=== PATIENT | female | born 1995 | race Caucasian/White ===

== ENCOUNTER 2023-10-15 12:39 | Outpatient (CLI) | payer MEDICAID, SELFPAY ==
--- NOTE | ~2023-10-15 | US_ITS ---
US breast LT limited 10/15/2023 13:04 Indication: Palpable breast lump Procedure: High-resolution Limited ultrasound of the left breast Comparison: No prior studies for comparison. Findings: At 11:00, 5 cm from the nipple there is an irregular shaped antiparallel hypoechoic mass me asuring 2.7 x 2.4 x 2.2 cm with internal vascularity and posterior acoustic enhancement. Impression: 1: Irregular shaped hypoechoic antiparallel vascular mass of the left breast at 11:00, 5 cm from the nipple measuring 2.7 cm. Recommend correlation with diagnostic bilateral mammogram for complete evalu ation. BI-RADS CATEGORY 0 - INCOMPLETE STUDY, NEED ADDITIONAL IMAGING EVALUATION. Reviewed, dictated and finalized at location A. ERSITY PROFESSOR Impression: 1: Irregular shaped hypoechoic antiparallel vascular mass of the left breast at 11:00, 5 cm from the nipple measuring 2.7 cm. Recommend correlation with diagn ostic bilateral mammogram for complete evaluation. BI-RADS CATEGORY 0 - INCOMPLETE STUDY, NEED ADDITIONAL IMAGING EVALUATION.
== END 2023-10-15 12:40 | disposition home or self-care (01) ==
LOC: ANHIMG 12:40
PROVIDERS: Visit Provider Obstetrics & Gynecology
DX: N63.22 Unspecified lump in the left breast, upper inner quadrant (principal); R92.2 Inconclusive mammogram
CPT/HCPCS: 76642

== ENCOUNTER 2023-11-06 09:09 | Outpatient (CLI) | payer MEDICAID, SELFPAY ==
--- NOTE | ~2023-11-06 | US_ITS ---
EXAMINATION: US GUIDED NEEDLE BIOPSY WITH VACUUM ASSISTANCE DATE: 11/06/2023 10:55 CDT INDICATION: Left breast mass seen on prior examination. Ultrasound-guided core biopsy is requested t o evaluate for malignancy. TECHNIQUE AND FINDINGS: The risks and potential benefits of the procedure were discussed with the patient, and written inform ed consent was obtained. After sterile preparation of the left breast, 1% lidocaine was utilized for local anesthesia. 1% lidocaine with epinephrine was used for deep anesthesia. A 10G vacuum-assisted biopsy gun needle was advanced through to the outer edge of the region of inter est from a superior approach utilizing sonographic guidance. A total of 4 tissue core samples were o btained through the lesion. An Inrad tissue marker clip was then placed at the biopsy site. Hemostas is was achieved. The patient tolerated procedure well and there was no evidence of immediate complication. The patien t was given verbal instructions partly is from the department. Tissue marker placement was confirmed by ultrasound. The tissue samples were submitted to surgical pathology for histologic analysis. IMPRESSION: 1. Successful ultrasound-guided vacuum-assisted biopsy of left breast mass with tissue marker placem ent. Please refer to pathology report for histologic analysis. Reviewed, dictated and finalized at location A. IMPRESSION: 1. Successful ultrasound-guided vacuum-assisted biopsy of left breast mass wit h tissue marker placement. Please refer to pathology report for histologic anal ysis.
== END 2023-11-06 09:10 | disposition home or self-care (01) ==
LOC: ANHIMG 09:11
PROVIDERS: Visit Provider Surgery
DX: N60.22 Fibroadenosis of left breast (principal)
CPT/HCPCS: 19083; 88305

== ENCOUNTER 2024-04-12 15:50 | Inpatient (IN) | payer OTHER, SELFPAY ==
[2024-04-12] VITALS (10 sets, daily range): BP systolic 94–130; BP diastolic 53–83; PULSE 76–95; TEMP 36.2; BMI 28.7
--- NOTE | 2024-04-12 15:50 | LDADM ---
This patient, Mulu Higuera, was admitted to Labor/Delivery/Recovery 108 on 04/12/24 at 15:50. Plans for labor, pain management and were discussed with patient. Patient/family oriented to hospital policies and general routines including ID bracelet, bed and alarms, visiting hours, pain management, procedures, bathroom and other care routines, personal items, smoking policy, room service/diet and guest tray routines, infant security routines, and visiting hours. Patient/Family are encouraged to report perceived risks to care and to ask questions if they do not understand what they are told or what they should do. See OBIX for further documentation.
[2024-04-12 16:37] LABS: Basophils Absolute Auto 0.1 K/mm3 (0.0-0.1); Basophils Percent Auto 0.4 % (0.2-1.2); Eosinophils Absolute Auto 0.1 K/mm3 (0-0.3); Eosinophils Percent Auto 0.5 % (0-4.4); Hematocrit 35.9 % (37.0-47.0); Hemoglobin 11.8 g/dL (12.0-15.0); Immature Granulocyte Absolute 0.18 K/mm3 (0.00-0.031); Immature Granulocyte Percent A 1.3 % (0-0.5); Immature Platelet Fraction Pct 13.8 % (0.9-11.2); Lymphocytes Absolute Auto 1.96 K/mm3 (0.9-3.2); Lymphocytes Percent Auto 13.8 % (18.3-44.2); Mean Corpuscular HGB Conc 32.9 g/dl (32-36); Mean Corpuscular Hemoglobin 31.3 pg (26-34); Mean Corpuscular Volume 95.2 fl (80-100); Mean Platelet Volume 13.2 fl (7.4-10.4); Monocytes Absolute Auto 1.2 K/mm3 (0.1-0.6); Monocytes Percent Auto 8.1 % (2.6-8.5); Neutrophils Absolute Auto 10.8 K/mm3 (1.3-6.7); Neutrophils Percent Auto 75.9 % (45.5-73.1); Platelet Count Result 190 k/mm3 (150-375); Red Blood Count 3.77 M/mm3 (4.2-5.4); Red Cell Distribution Width 13.3 % (11.5-14.5); White Blood Count 14.2 K/mm3 (4.5-10.0)
[2024-04-12] MEDS: DINOPROSTONE 10 MG VAG INSERT VAGINAL (16:45)
[2024-04-12] MEDS: AMPICILLIN 2 GM/NS 100 ML 2 GM/100 ML BAG IVPB (16:50)
[2024-04-12] MEDS: LACTATED RINGERS 1,000 ML 125 ML IV CONT (16:50)
[2024-04-12 17:03] LABS: Rapid Plasma Reagin Non-Reactive (NonReactive)
[2024-04-12 17:27] LABS: HIV 1/2 Ab P24 Ag Result Negative (Negative)
--- NOTE | 2024-04-12 18:29 | WPDANESEPP ---
Anes - Eval Pre Procedure Procedure: Labor Epidural Date/Time: 04/12/24 18:29 Surgeon: April Preop Diagnosis: Labor Pain Pre Op Diagnosis: Induction of Labor Patient Data Age: 28 Gender: F Height: 1.83 m Weight: 96 kg Last Vital Signs Pulse 83 04/12/24 18:15 BP 101/57 L 04/12/24 18:15 O2 Del Method Room Air 04/12/24 18:16 Allergies Allergy/AdvReac Type Severity Reaction Status Date / Time No Known Allergies Allergy Verified 03/16/24 14:05 Home Medications Medication Instructions Recorded Confirmed Type No Home Medications 10/29/23 03/16/24 History Laboratory Tests 04/12/24 16:03 WBC 14.2 H K/mm3 (4.5-10.0) RBC 3.77 L M/mm3 (4.2-5.4) Hgb 11.8 L g/dL (12.0-15.0) Hct 35.9 L % (37.0-47.0) MCV 95.2 fl (80-100) MCH 31.3 pg (26-34) MCHC 32.9 g/dl (32-36) RDW 13.3 % (11.5-14.5) Plt Count 190 k/mm3 (150-375) MPV 13.2 H fl (7.4-10.4) Immature Gran % (Auto) 1.3 H % (0-0.5) Neut % (Auto) 75.9 H % (45.5-73.1) Lymph % (Auto) 13.8 L % (18.3-44.2) [place] % (Auto) 8.1 % (2.6-8.5) Eos % (Auto) 0.5 % (0-4.4) Baso % (Auto) 0.4 % (0.2-1.2) Lymph # (Auto) 1.96 K/mm3 (0.9-3.2) [place] # (Auto) 1.2 H K/mm3 (0.1-0.6) Eos # (Auto) 0.1 K/mm3 (0-0.3) Baso # (Auto) 0.1 K/mm3 (0.0-0.1) Abs Immat Gran (auto) 0.18 H K/mm3 (0.00-0.031) Absolute Neuts (auto) 10.8 H K/mm3 (1.3-6.7) Absolute Nucleated RBC 0.000 K/mm3 (0.0-0.012) Nucleated RBC % 0.0 % (0.0-0.2) % Immature Plt Fraction 13.8 H % (0.9-11.2) RPR Non-reactive (NonReactive) HIV 1&2 Ab/P24 Ag 4thGn Negative (Negative) Blood Type A Positive Antibody Screen Negative : gestational age (. YOLANDA 04/15/24) Patient hx anesthesia problems: none Family hx anesthesia problems: none Results Review: All pre-operative results and documents have been reviewed as part of the pre-operative evaluation. [facility] Family History Family History Mother Asthma Sibling Asthma Diabetes mellitus Grandparent Diabetes mellitus Social History Social History Smoking status: Never smoker Alcohol intake: never Substance use: never Substance use type: does not use Do You Feel Safe in your Home?: Yes Lack of Transportation: No Lack of Food: Never True Current Housing: I Have Housing Concerned About Future Housing: No Difficulty Paying Gas/Electric Bills: No Difficulty Paying for Meds: No Currently Unemployed: No Education: High School Diploma/GED Difficulty w/ Childcare or Family Care: No Spiritual care concerns: No Exam Day of Procedure 04/12/24 18:29 Patient weight: normal Heart: regular rate and rhythm Lungs: normal air movement Airway: Mallampati scale class II Neurological: alert and oriented
[2024-04-12] MEDS: AMPICILLIN 1 GM/NS 50 ML 1 GM/50 ML BAG IVPB (20:46)
[2024-04-13] VITALS (259 sets, daily range): BP systolic 92–138; BP diastolic 42–100; PULSE 46–137; RESP 18; TEMP 35.6–37.7; O2SAT 88–100
[2024-04-13] MEDS: AMPICILLIN 1 GM/NS 50 ML 1 GM/50 ML BAG IVPB ×4 (00:58→13:20)
[2024-04-13] MEDS: OXYTOCIN 30 UNITS/NS 500 ML 30 UNITS/500 ML BAG 6 UNITS IV CONT (05:28)
[2024-04-13] MEDS: fentaNYL CITRATE INJ (*CRX) 100 MCG/2 ML VIAL 50 MCG IV PUSH ×2 (06:12→09:36)
[2024-04-13] MEDS: LACTATED RINGERS 1,000 ML 125 ML IV CONT ×3 (07:02→13:21)
[2024-04-13] MEDS: ONDANSETRON INJ 4 MG/2 ML VIAL IV PUSH (11:26)
--- NOTE | 2024-04-13 12:14 | PM.IMHP ---
H&P: HPI History of Present Illness Date/Time: 04/13/24 12:14 Chief Complaint: Here for induction of labor. Narrative: 28 y/o G1 at 39 5/7 weeks here for induction of labor. Cervidil overnight, has been withdrawn. Feeling painful contractions, feels much better now with epidural. GBS pos. Chlamydia cervicitis in , treated, with a negative test of cure. Review of Systems Review of Systems: All systems reviewed & are unremarkable except as noted in HPI and below PMFSH Surgical History Surgical History History of breast biopsy Family History Family History Mother Asthma Sibling Asthma Diabetes mellitus Grandparent Diabetes mellitus Social History Social History Smoking status: Never smoker Alcohol intake: never Substance use: never Substance use type: does not use Do You Feel Safe in your Home?: Yes Lack of Transportation: No Lack of Food: Never True Current Housing: I Have Housing Concerned About Future Housing: No Difficulty Paying Gas/Electric Bills: No Difficulty Paying for Meds: No Currently Unemployed: No Education: High School Diploma/GED Difficulty w/ Childcare or Family Care: No Spiritual care concerns: No Meds Home Medications and Allergies Home Medications Medication Instructions Recorded Confirmed Type No Home Medications 10/29/23 03/16/24 History Allergies Allergy/AdvReac Type Severity Reaction Status Date / Time No Known Allergies Allergy Verified 03/16/24 14:05 Vital Signs Vital Signs - 24 hr 04/12/24 16:31 04/12/24 16:45 04/12/24 17:00 Temperature Pulse Rate 95 87 85 Blood Pressure 122/74 130/83 99/78 L Pulse Oximetry Oxygen Delivery 04/12/24 17:15 04/12/24 17:30 04/12/24 17:45 Temperature Pulse Rate 92 86 84 Blood Pressure 103/65 119/73 94/53 L Pulse Oximetry Oxygen Delivery 04/12/24 18:00 04/12/24 18:15 04/12/24 18:30 Temperature 36.2 C L Pulse Rate 85 83 76 Blood Pressure 97/55 L 101/57 L 118/72 Pulse Oximetry Oxygen Delivery 04/12/24 22:29 04/13/24 03:12 04/13/24 03:13 Temperature Pulse Rate 78 67 Blood Pressure 122/63 105/53 L Pulse Oximetry 99 Oxygen Delivery 04/13/24 03:18 04/13/24 03:23 04/13/24 03:28 Temperature Pulse Rate Blood Pressure Pulse Oximetry 100 100 98 Oxygen Delivery 04/13/24 03:33 04/13/24 03:38 04/13/24 03:43 Temperature Pulse Rate Blood Pressure Pulse Oximetry 100 100 100 Oxygen Delivery 04/13/24 03:48 04/13/24 03:53 04/13/24 03:58 Temperature Pulse Rate Blood Pressure Pulse Oximetry 100 100 100 Oxygen Delivery 04/13/24 04:03 04/13/24 04:08 04/13/24 04:13 Temperature Pulse Rate Blood Pressure Pulse Oximetry 100 100 100 Oxygen Delivery 04/13/24 04:18 04/13/24 04:23 04/13/24 04:28 Temperature Pulse Rate Blood Pressure Pulse Oximetry 99 100 100 Oxygen Delivery 04/13/24 04:33 04/13/24 04:38 04/13/24 04:43 Temperature Pulse Rate Blood Pressure Pulse Oximetry 100 100 100 Oxygen Delivery 04/13/24 04:44 04/13/24 04:48 04/13/24 04:56 Temperature Pulse Rate 63 57 L Blood Pressure 109/63 118/78 Pulse Oximetry 100 Oxygen Delivery 04/13/24 05:00 04/13/24 05:30 04/13/24 06:00 Temperature Pulse Rate 68 67 59 L Blood Pressure 115/69 131/70 111/56 L Pulse Oximetry Oxygen Delivery 04/13/24 06:20 04/13/24 06:25 04/13/24 06:30 Temperature Pulse Rate 63 Blood Pressure 108/71 Pulse Oximetry 98 99 98 Oxygen Delivery 04/13/24 06:35 04/13/24 06:40 04/13/24 06:45 Temperature Pulse Rate Blood Pressure Pulse Oximetry 98 100 99 Oxygen Delivery 04/13/24 06:50 04/13/24 06:55 04/13/24 07:00 Temperature P
--- NOTE | 2024-04-13 17:24 | PM.OBPRVD ---
OB - Vaginal Delivery Note Procedure Delivery date: 04/13/24 Events: Elective Induction of Labor and Positive Group B Strep (GBS) Induction method: Per Cervidil Protocol Delivery augmentation: Rupture of Membranes and Pitocin Delivery monitor: External FHT, External Uterine and Internal Uterine Route of delivery: Laceration Description: Vaginal Delivery repair: vicryl (3-0 Vicryl) Specimen: Yes (cord blood) Quantitative Blood Loss (ml): 425 Anesthesia type: Epidural Disposition: PACU Complications: None Narrative: 28 y/o G1 at 39 5/7 weeks gestation who presented to the hospital for induction of labor. Cervidil was placed overnight and withdrawn the next morning. She was given ampicillin IV for GBS colonization. Oxytocin was administered intravenously. Amniotomy was performed with return of clear fluid. She received an epidural for pain control. Her labor progressed and her cervix dilated completely. She pushed with good effort and delivered the infant's head to the perineum, followed by the body. The nose and mouth were bulb suctioned. After a delay, the cord was clamped and cut. The was handed off the field. Cord blood was collected. The placenta delivered spontaneously and was grossly normal in appearance. The usual 3 vessel cord was noted. A distal vaginal laceration was sustained. This was reapproximated using 3 0 Vicryl in two interrupted figure of eight sutures. Excellent hemostasis resulted as did excellent reapproximation of the normal anatomy. Needle and instrument counts were correct. The patient was taken to recovery room in stable condition. The went to the nursery in stable condition. I was present and scrubbed for the entire delivery. Baby Date of : 04/13/24 Time of : 17:08 Gestational Age by Date: 39 gender: Ambiguous Weight (pounds): 9 Weight (ounces): 5 presentation: vertex position: Left Occiput Anterior Placenta delivery description: Spontaneous and Normal Configuration Cord Vessel Description: 3 Vessels and Delayed Cord Clamping score one minute: 9 score five minutes: 9
[2024-04-13] MEDS: OXYTOCIN 30 UNITS/NS 500 ML 30 UNITS/500 ML BAG 125 UNITS IV CONT (17:27)
--- NOTE | 2024-04-13 17:28 | PM.OBDSVD ---
DS: Admitting Diagnosis Discharge Date 04/15/24 Admitting Diagnosis IUP at 39 5/7 weeks GBS colonization DS: Discharge Diagnosis Discharge Diagnosis (1) (normal spontaneous vaginal delivery): Code(s): O80 - Encounter for full-term uncomplicated delivery Status: Acute (2) GBS (group B Streptococcus carrier), +RV culture, currently : Code(s): O99.820 - Streptococcus B carrier state complicating Status: Acute OB - DS: Summary OB Procedures : None OB Procedures Intrapartum: Spontaneous Vag Delivery and GBS prophylaxis OB Procedures: : None Peripartum Data Laceration Description: Vaginal Time Spent with Patient Time attestation: Total time spent providing and/or coordinating discharge services: Discharge Plan Discharge Attending physician on discharge: Erick Chen Discharging Clinician: Erick Chen Patient Disposition: Home, Self-Care Activity: pelvic rest Diet: regular Discharge Instructions: Call or return if temperature above 100.4? F, increased abdominal pain, increased vaginal bleeding or any new problems. Stand Alone Forms: General Discharge Information Follow-up/Referrals: Erick Chen MD [Physician] - 6 Weeks Discharge Medications: New ibuprofen 600 mg tablet 600 mg PO Q6H PRN (Reason: cramps) Qty: 30 0RF ferrous sulfate 325 mg (65 mg iron) tablet,delayed release (DR/EC) 325 mg PO DAILY Qty: 30 0RF No Action No Home Medications Date of admission: 04/12/24 15:50 Primary Care Provider: UNKNOWN,DOCTOR Admitting Provider: Erick Chen Attending physician on admission: Erick Chen Condition: Stable
--- NOTE | 2024-04-13 20:17 | OBPPTRN ---
Patient transferred to post room #286 via wheelchair. Support person present. Oriented to unit, room, information board, rooming in, admission packet and security measures. Patient verbalizes understanding. with patient.
[2024-04-13] MEDS: IBUPROFEN 600 MG TABLET PO (21:36)
[2024-04-14 00:24] VITALS: BP 109/63; PULSE 79; RESP 18; TEMP 37.2; O2SAT 97
[2024-04-14 04:00] VITALS: BP 98/57; PULSE 80; RESP 18; TEMP 37.1; O2SAT 98
[2024-04-14 05:27] LABS: Hemoglobin 9.7 g/dL (12.0-15.0)
--- NOTE | 2024-04-14 07:45 | WPDANLDPN2 ---
Anes-Prog Note L&D Date/Time: 04/14/24 07:45 Comfortable throughout: labor and delivery Neuraxial method: epidural Epidural/Spinal procedure site: tender Neuro status: Neuro function grossly intact. Cardiovascular status: normal Respiratory status: normal Airway patency: baseline Mental status: baseline Post-Op hydration status: normal Vital Signs: Last Vital Signs Temp 37.1 C 04/14/24 04:00 Pulse 80 04/14/24 04:00 Resp 18 04/14/24 04:00 BP 98/57 L 04/14/24 04:00 Pulse Ox 98 04/14/24 04:00 O2 Del Method Room Air 04/13/24 20:17 Pain score (VAS): 3/10 I/O: Intake & Output 04/13/24 04/13/24 04/14/24 15:59 23:59 07:59 Intake Total 2049 50 Output Total 370 Balance 2049 -320 Post-procedural complaints: none Patient feedback: Patient satisfied with anesthetic care.
[2024-04-14 08:24] VITALS: BP 108/60; PULSE 79; RESP 14; TEMP 36.6; O2SAT 99
--- NOTE | 2024-04-14 09:05 | PC.NURSE ---
On 04/14/24, the student, Rosa Adam, provided care and completed [facility] documentation on this patient. I have reviewed the student's documentation and agree with the findings.
[2024-04-14] MEDS: MULTIVIT/MIN/PREN/FOL AC/IRON TABLET 1 TAB PO (09:20)
[2024-04-14] MEDS: DOCUSATE SODIUM 100 MG CAPSULE PO (09:21)
[2024-04-14] MEDS: IBUPROFEN 600 MG TABLET PO (09:21)
--- NOTE | 2024-04-14 10:35 | PC.NURSE ---
It's time for baby to eat and the blood sugar was good. Mom was changing a diaper to try to wake baby up. Baby was sleepy and did not give feeding cues or open her mouth. We attempted to latch baby for a few minutes but baby gave no effort. Baby supplemented with 30mls 3 hours ago so mom agrees to take a break and let baby sleep a while longer. If she tries again in a half hour and we still can't wake baby up, we will move on to supplementation since baby is following the hypoglycemia protocol. Mom will call as needed for assistance. Reported to primary RN.
[2024-04-14 12:15] VITALS: BP 97/52; PULSE 81; RESP 18; TEMP 37.6; O2SAT 98
--- NOTE | 2024-04-14 12:28 | PM.OBPNVD ---
OB - PN: Subj Subjective Date/time seen: 04/14/24 12:28 Narrative: Pain OK. OB - PN: Obj Data Labs 04/14/24 03:55 Labs: Laboratory Results - last 24 hr 04/14/24 03:55 Hgb 9.7 L Hct 30.0 L OB - PN A/P Plan day: 1 Comments: A: PPD#1, doing well. P: Routine care. Plan home tomorrow. Exam Psych: Other: AVSS ABD soft, nontender, fundus firm EXT nontender
--- NOTE | 2024-04-14 15:20 | PC.NURSE ---
RN requested assistance with feeding. Mom was attempting in cradle hold and baby was trying to latch but was not in a great position. We worked on cross cradle hold so mom has a little more control of baby's head. Baby latched and sucked a few times but did not maintain the latch. We switched to football hold and had a little more success with latching and sucking. Baby was off and on for a few sucks and then fell asleep and wouldn't open her mouth anymore. Advised mom to go ahead with supplementing and then start with attempting at breast again next feeding. Mom will call out for assistance as needed. Reported to primary RN.
[2024-04-14 17:10] VITALS: BP 111/66; PULSE 79; RESP 18; TEMP 37.4; O2SAT 97
[2024-04-14 21:00] VITALS: BP 103/56; PULSE 78; RESP 16; TEMP 36.5; O2SAT 99
[2024-04-15] MEDS: POLYSACCHARIDE IRON COMPLEX 150 MG CAPSULE PO (07:15)
[2024-04-15] MEDS: IBUPROFEN 600 MG TABLET PO (07:16)
[2024-04-15] MEDS: MULTIVIT/MIN/PREN/FOL AC/IRON TABLET 1 TAB PO (07:16)
[2024-04-15] MEDS: DOCUSATE SODIUM 100 MG CAPSULE PO (07:16)
[2024-04-15 08:40] VITALS: BP 99/51; PULSE 63; RESP 18; TEMP 36.9; O2SAT 100
--- NOTE | 2024-04-15 09:04 | PM.OBPNVD ---
OB - PN: Subj Subjective Date/time seen: 04/15/24 09:04 Narrative: Pain OK. Would like to go home. OB - PN: Obj Data Labs 04/14/24 03:55 OB - PN A/P Plan Comments: A: PPD#2, doing well. P: Home to f/u 6 weeks. Exam Psych: Other: AVSS ABD soft, nontender, fundus firm EXT nontender
--- NOTE | 2024-04-15 16:17 | PC.NURSE ---
1430. Consulted with mother concerning needs and she shared her ability to independently latch infant optimally without pain, she explains she plans to combo feed on discharge. Mother is feeding appropriately for growth of and understands stimulating infant to eat if needed. Infant has had appropriate feedings in the last 24 hours meets the outcomes for weight, output, blood sugar and jaundice at this time. Reinforced understanding of milk production, transition of milk, signs of adequate intake, transition of stool, prevention/relief of engorgement, plugged ducts, mastitis, responsive watching for feeding cues, the different methods of stimulating to breastfeed 1-3 hours after the start of the last feeding, community resources, and when to call a provider using the resource of the feeding sheet along with the mom and baby guide. Mother voiced understanding of the information shared, is confident to continue effectively her at home, when to call for assistance, denies any additional assistance or education at this time. Reported to the Primary RN.
--- NOTE | 2024-04-15 16:29 | PC.NURSE ---
Patient was discharged today without receiving rubella and TDap vaccine. Called patient at 1630 to notify her to get these vaccines outpatient at her local pharmacy. Patient verbalizes understanding.
[2024-04-16 14:10] VITALS: BP 118/61; PULSE 77; RESP 18; TEMP 36.8; O2SAT 99
== END 2024-04-15 15:34 | disposition home or self-care (01) | DRG 560 ==
LOC: ANHLDR 04-13 17:29 → ANHOB2 04-13 23:28
PROVIDERS: Admitting Provider Obstetrics & Gynecology; Visit Provider Obstetrics & Gynecology
DX: O99.824 Streptococcus B carrier state complicating childbirth (principal); Z37.0 Single live birth; Z3A.39 39 weeks gestation of pregnancy
CPT/HCPCS: 36415; 85014; 85018; 85025; 85055; 86592; 86703; 86850; 86900; 86901; A9270; G0432; J0290; J2405; J2590; J2795; J3010; J7120

== ENCOUNTER 2025-04-19 16:25 | Outpatient (CLI) | payer OTHER, SELFPAY ==
--- NOTE | ~2025-04-19 | US_ITS ---
EXAMINATION: US OB <= 14 weeks fetus DATE: 04/19/2025 16:55 INDICATION: Encounter for supervision of normal TECHNIQUE: Real-time pelvic ultrasound utilizing both a transvaginal and transabdominal probe was performed. The interpreting radiologist was not present for the study. COMPARISON: None. FINDINGS: The uterus measures 13.8 x 11.3 x 9.0 cm. There is an intrauterine gestational sac. A yolk sac and pole are identified. The crown rump length measures 6.0 cm, which correlates with an estimated gestational age of 12 weeks and 3 days. heart motion is identified measuring 160 beats per minute (bpm) by M-mode Doppler. Along the right side of the gestational sac there is a second 5.5 x 3.2 x 4.0 cm simple appearing cystic structure without well-defined thin echogenic peripheral rim but without evident internal yolk sac or pole. The right and left ovaries are not visualized. There is no free fluid in the pelvis. IMPRESSION: 1. Single living fetus with heart rate of 160 bpm. 2. Gestational age by ultrasound of 12 weeks 3 day(s) +/- 1 week and 1 day with ultrasound estimated date of delivery (YOLANDA) of 10/29/2025. 3. Indeterminate 5.5 x 3.2 x 4.0 cm simple appearing intrauterine cystic structure along the right side of the gestational sac without evident internal yolk sac or pole. Differential would include a second failed gestational sac, subchorionic hematoma or loculated collection of fluid within the e ndometrial canal. Reviewed, dictated and finalized at location A. IMPRESSION: 1. Single living fetus with heart rate of 160 bpm. 2. Gestational age by ultrasound of 12 weeks 3 day(s) +/- 1 week and 1 day wit h ultrasound estimated date of delivery (YOLANDA) of 10/29/2025. 3. Indeterminate 5.5 x 3.2 x 4.0 cm simple appearing intrauterine cystic struct ure along the right side of the gestational sac without evident internal yolk s ac or pole. Differential would include a second failed gestational sac, s ubchorionic hematoma or loculated collection of fluid within the endometrial ca nal.
== END 2025-04-19 16:26 | disposition home or self-care (01) ==
PROVIDERS: Visit Provider Obstetrics & Gynecology
DX: Z34.91 Encounter for supervision of normal pregnancy, unspecified, first trimester (principal); Z3A.12 12 weeks gestation of pregnancy
CPT/HCPCS: 76801; 76817

== ENCOUNTER 2025-05-02 11:04 | Outpatient (CLI) | payer OTHER, SELFPAY ==
[2025-05-02 11:38] LABS: Hematocrit 38.6 % (37.0-47.0); Hemoglobin 12.9 g/dL (12.0-15.0); Mean Corpuscular HGB Conc 33.4 g/dl (32-36); Mean Corpuscular Hemoglobin 32.2 pg (26-34); Mean Corpuscular Volume 96.3 fl (80-100); Platelet Count Result 179 k/mm3 (150-375); Red Blood Count 4.01 M/mm3 (4.2-5.4); White Blood Count 14.5 K/mm3 (4.5-10.0)
[2025-05-02 12:05] LABS: Add Urine Microscopic? YES; Appearance Urine Clear (Clear); Glucose Urine UA Negative (Negative); Leukocyte Esterase Ur 2+ LEU/UL (Negative); Nitrate Urine Negative (Negative); Non Pathogenic Casts 0-2; Specific Grav Ur 1.022 (1.001-1.035)
[2025-05-02 12:30] LABS: Syphilis IgG/IgM Antibody Non-Reactive (Nonreactive)
[2025-05-02 12:31] LABS: Thyroid Stimulating Hormone 1.370 uIU/mL (0.465-4.680)
[2025-05-02 12:32] LABS: Hepatitis B Surface Antigen Negative (Negative)
[2025-05-02 12:39] LABS: HIV 1/2 Ab P24 Ag Result Negative (Negative)
--- OUTSIDE RECORDS SUMMARY | 2025-05-02 13:09 | XMS_ITS | Clinical Summary ---
Author Organization [facility] Address [address] [place] [address] Care Team Providers Care Compounding Technician Name Role Phone Unavailable Primary Care Provider Unavailabl e Source Comments [facility],non-owned Affiliates and Associated Physician Practices is amultiple site organization consisting of ambulatory clinics and hospital sitesin [place], [place], [place] and [place]. This disclosure is being madepursuant to the Care Everywhere program and may not contain all information available regarding this patient. Last updated 18.[facility] Allergies No known active allergies Medications * Be aware that medications may not be up to date on this document. Alwaysverify current medications with the patient. clindamycin 1 % gelIndications:A cne vulgaris Apply to face 1-3 times per day for acne. 60 g 5 10/21/2023 Active Social History Tobacco Use Types Packs/Day Years Used Date Smoking Tobacco: Never Smokeless Tobacco: Never Tobacco Cessation:Counseling Given: Not Answered Comments Unknown Sex and Gender Information Value Date Recorded Sex Assigned at Not on file Legal Sex Female 12:01 PM DIRECTOR PROJECT MANAGEMENT Gender Identity Not on file Sexual Orientation Not on file Plan of Treatment Health Maintenance Due Date Last Done Comments HIV SCREENING 2009 HEPATITIS C SCREENING 06/12/2012 DTAP/TDAP/TD VACCINES (1 - Tdap) 2013 HEPATITIS B VACCINE (1 of 3 - 19+ 3-dose series) 2013 PAP SMEAR 2015 HPV VACCINE (1 - 3-dose SCDM series) 2021 DEPRESSION SCREENING 08/18/2024 COVID-19 VACCINE (1 - 2023-2 5 season) 2025 INFLUENZA VACCINE (#1) 2025 ZOSTER VACCINE (1 of 2) 2044 HIB VACCINE Aged Out No longer eligi ble based on patient's age to complete this topic MENINGOCOCCAL (Group B) VACC INE SHARED DECISION-MAKING Aged Out No longer eligibl e based on patient's age to complete this topic MENINGOCOCCAL GROUPS A/C/Y/W VACCINE Aged Out No longer eligible b ased on patient's age to complete this topic PNEUMOCOCCAL VACCINE Aged Out No long er eligible based on patient's age to complete this topic Insurance [facility] [place] [place]F [place] INSURANCE Member Subscriber Plan / Payer (Ef fective for All Dates) Name:Zay Higuera Member ID:Not on file Relation to Subscriber:Not on file Name:ZAY HIGUERA Subscriber ID:Not on file Address: [address] [place], [place] [address] Payer ID:Not on file Group ID:Not on file Type:Self Pay Address: [place], [place] MED[place] SELF PAY NO INSURANCE Member Subscriber Plan / Payer (Ef fective for All Dates) Name:Zay Higuera Member ID:Not on file Relation to Subscriber:Not on file Name:ZAY HIGUERA Subscriber ID:Not on file Address: [address] [place] [address] Payer ID:Not on file Group ID:Not on file Type:Self Pay Address: [place], [place] Member Subscriber Plan / Payer (Ef fective for All Dates) Name:Matheus Higueraitlin Relation to Subscriber:Self Name:Zay Higuera Payer ID:Not on file Group ID:Not on file Type:Medicaid [place] Address: [place] [id number] SELF PAY NO INSURANCE Member Subscriber Plan / Payer (Ef fective for All Dates) Name:Matheus Higueraitlin Member ID:Not on file Relation to Subscriber:Not on file Name:ZAY HIGUERA Subscriber ID:Not on file Address: [address] [place] [id number] Payer ID:Not on file Group ID:Not on file Type:Self Pay Address: [place], [place]
[2025-05-03 15:09] LABS: Varicella-Zoster Ab, IgG Reactive (Non Reactive); Varicella-Zoster Ab, IgM <0.91 index (0.00-0.90)
== END 2025-05-02 11:05 | disposition home or self-care (01) ==
LOC: ANHLAB 11:05
PROVIDERS: Visit Provider Obstetrics & Gynecology
DX: Z34.90 Encounter for supervision of normal pregnancy, unspecified, unspecified trimester (principal); Z3A.00 Weeks of gestation of pregnancy not specified
CPT/HCPCS: 36415; 81001; 84443; 85027; 86593; 86703; 86762; 86787; 86803; 86850; 86900; 86901; 87340; G0432